=== PATIENT | female | born 1950 | race Caucasian/White ===

== ENCOUNTER 2019-11-10 19:18 | Inpatient (IN) | payer MEDICARE, MEDICAID ==
[~2019-11-10] VITALS: Ht 154.9 cm; Wt 66.2 kg
[2019-11-10] MEDS ORDERED: ACETAMINOPHEN 500MG TABLET PO ONE (20:30)
[2019-11-10 20:36] LABS: BASOPHILS % 1.1 % (0.0-2.0); EOSINOPHILS % 1.5 % (0.0-5.0); HEMOGLOBIN. 12.5 g/dL (12.0-16.0); LYMPHOCYTES % 31.5 % (20.0-50.0); MEAN CORPUSCULAR HEMOGLOBIN 33.3 pg (28.0-32.0); MEAN CORPUSCULAR VOLUME 98.3 fL (81.0-99.0); MEAN PLATELET VOLUME 7.9 fl (7.4-10.4); MONOCYTES % 7.8 % (2.0-8.0); NEUTROPHILS % 58.1 % (40.0-76.0); PLATELET 275 x1000/uL (130-400); RED BLOOD CELL COUNT 3.76 mill/uL (4.2-5.4)
[2019-11-10 20:37] LABS: CHLORIDE 108 mEq/L (98-107)
[2019-11-11] VITALS (12 sets, daily range): BP systolic 98–139; BP diastolic 56–71
[2019-11-11] MEDS ORDERED: MAGNESIUM/ALUMINUM HYDROXIDE/SIMETHICONE 30ML UDC PO PRN (02:15)
[2019-11-11] MEDS ORDERED: GUAIFENESIN 200MG/10ML SUGAR FREE UDC PO PRN (02:15)
[2019-11-11] MEDS ORDERED: DIPHENHYDRAMINE 50MG/ML VIAL IV PRN (02:15)
[2019-11-11] MEDS ORDERED: ONDANSETRON HCL 4MG/2ML INJ IV PRN (02:15)
[2019-11-11] MEDS: ACETAMINOPHEN 325MG TABLET PO PRN ×2 (02:23→13:48)
[2019-11-11] MEDS ORDERED: DEXTROSE 50% WATER 50ML SYRINGE IV PRN (02:30)
[2019-11-11] MEDS ORDERED: KETOROLAC 15MG/ML VIAL IV PRN (02:30)
[2019-11-11] MEDS ORDERED: AMLO5TAB4 PO (05:17)
[2019-11-11] MEDS ORDERED: SOTA80TA25 PO (05:17)
[2019-11-11] MEDS ORDERED: LISI10TA5 PO (05:17)
[2019-11-11] MEDS ORDERED: OCD PO (05:17)
[2019-11-11] MEDS ORDERED: MULT-1146 PO (05:17)
[2019-11-11] MEDS ORDERED: APIX5TAB PO (05:17)
[2019-11-11] MEDS ORDERED: VITA1TAB30 MT (05:17)
[2019-11-11] MEDS ORDERED: GABA800T97 PO (05:17)
[2019-11-11] MEDS ORDERED: BICT1TAB PO (05:17)
[2019-11-11] MEDS ORDERED: ESOM40CA PO (05:17)
[2019-11-11] MEDS ORDERED: METF500T PO (05:17)
[2019-11-11] MEDS ORDERED: HYDR12.54 PO (05:17)
[2019-11-11] MEDS ORDERED: LACO150T2 PO (05:17)
[2019-11-11] MEDS ORDERED: ZONI100C45 MT (05:17)
[2019-11-11] MEDS ORDERED: ATOR10TA69 PO (05:17)
[2019-11-11] MEDS: PANTOPRAZOLE 40MG DR TABLET PO SCH (06:20)
[2019-11-11] MEDS: SODIUM CHLORIDE 0.9% INJ 3ML FLUSH IVF SCH ×3 (06:20→21:59)
[2019-11-11] MEDS: BLOOD SUGAR DIAGNOSTIC STRIP TEST SCH ×4 (06:20→21:58)
[2019-11-11] MEDS: INSULIN LISPRO 100 UNITS/ML SUBCUT SCH ×4 (07:20→21:00)
[2019-11-11] MEDS: METFORMIN HCL 500MG TABLET PO SCH ×2 (07:20→18:06)
[2019-11-11] MEDS: ZONISAMIDE 100MG CAPSULE PO SCH ×2 (09:00→17:00)
[2019-11-11] MEDS ORDERED: SOTALOL HCL 80MG TABLET PO SCH ×2 (09:00→21:00)
[2019-11-11] MEDS ORDERED: LISINOPRIL 10MG TABLET PO SCH (09:00)
[2019-11-11] MEDS: AMLODIPINE 10MG TABLET PO SCH (09:00)
[2019-11-11] MEDS: APIXABAN 5 MG TABLET PO SCH ×2 (09:00→17:00)
[2019-11-11] MEDS: CALCIUM CARBONATE/VITAMIN D3 500MG TABLET PO SCH (09:00)
[2019-11-11 18:49] LABS: T4 FREE 0.94 ng/dL (0.76-1.46)
[2019-11-11] MEDS: GABAPENTIN 400MG CAPSULE PO SCH (21:54)
[2019-11-11] MEDS: ATORVASTATIN CALCIUM 20MG TABLET PO SCH (21:56)
[2019-11-12] VITALS (12 sets, daily range): BP systolic 92–143; BP diastolic 52–70
[2019-11-12] MEDS ORDERED: NON FORMULARY PATIENT HOME MED XX SCH ×3 (00:45→21:00)
[2019-11-12] MEDS ORDERED: SOTALOL HCL 80MG TABLET PO NR (02:21)
[2019-11-12] MEDS: PANTOPRAZOLE 40MG DR TABLET PO SCH (05:40)
[2019-11-12] MEDS: SODIUM CHLORIDE 0.9% INJ 3ML FLUSH IVF SCH ×3 (05:40→22:00)
[2019-11-12] MEDS: BLOOD SUGAR DIAGNOSTIC STRIP TEST SCH ×4 (05:48→21:00)
[2019-11-12] MEDS: INSULIN LISPRO 100 UNITS/ML SUBCUT SCH ×4 (07:20→21:00)
[2019-11-12 07:39] LABS: BASOPHILS % 0.8 % (0.0-2.0); EOSINOPHILS % 3.5 % (0.0-5.0); HEMATOCRIT. 33.7 % (36.0-48.0); HEMOGLOBIN. 11.1 g/dL (12.0-16.0); LYMPHOCYTES % 38.6 % (20.0-50.0); MEAN CORPUSCULAR HEMOGLOBIN 32.7 pg (28.0-32.0); MEAN CORPUSCULAR VOLUME 99.1 fL (81.0-99.0); MEAN PLATELET VOLUME 8.1 fl (7.4-10.4); MONOCYTES % 8.8 % (2.0-8.0); NEUTROPHILS % 48.3 % (40.0-76.0); PLATELET 251 x1000/uL (130-400); RED CELL DISTRIBUTION WIDTH 14.2 % (11.6-14.6)
[2019-11-12] MEDS: APIXABAN 5 MG TABLET PO SCH ×2 (08:42→18:05)
[2019-11-12] MEDS: ZONISAMIDE 100MG CAPSULE PO SCH ×2 (08:42→18:05)
[2019-11-12] MEDS: CALCIUM CARBONATE/VITAMIN D3 500MG TABLET PO SCH (08:42)
[2019-11-12] MEDS: METFORMIN HCL 500MG TABLET PO SCH ×3 (08:42→18:05)
[2019-11-12 08:43] LABS: CHLORIDE 109 mEq/L (98-107)
[2019-11-12] MEDS: ACETAMINOPHEN 325MG TABLET PO PRN ×2 (08:43→20:44)
[2019-11-12] MEDS: SOTALOL HCL 80MG TABLET PO SCH ×3 (08:45→22:17)
[2019-11-12] MEDS: AMLODIPINE 10MG TABLET PO SCH (08:46)
[2019-11-12] MEDS: LACOSAMIDE PO SCH ×2 (10:22→23:38)
[2019-11-12] MEDS: ATORVASTATIN CALCIUM 20MG TABLET PO SCH (22:17)
[2019-11-12] MEDS: GABAPENTIN 400MG CAPSULE PO SCH (22:17)
[2019-11-13] VITALS (10 sets, daily range): BP systolic 107–131; BP diastolic 53–79
[2019-11-13] MEDS: SODIUM CHLORIDE 0.9% INJ 3ML FLUSH IVF SCH ×2 (06:00→14:00)
[2019-11-13] MEDS: BLOOD SUGAR DIAGNOSTIC STRIP TEST SCH ×3 (06:50→16:50)
[2019-11-13] MEDS: PANTOPRAZOLE 40MG DR TABLET PO SCH (06:53)
[2019-11-13 06:59] LABS: EOSINOPHILS % 4.2 % (0.0-5.0); HEMATOCRIT. 32.4 % (36.0-48.0); HEMOGLOBIN. 10.9 g/dL (12.0-16.0); LYMPHOCYTES % 45.1 % (20.0-50.0); MEAN CORPUSCULAR VOLUME 98.5 fL (81.0-99.0); MEAN PLATELET VOLUME 8.3 fl (7.4-10.4); MONOCYTES % 8.2 % (2.0-8.0); NEUTROPHILS % 41.5 % (40.0-76.0); PLATELET 235 x1000/uL (130-400); RED BLOOD CELL COUNT 3.29 mill/uL (4.2-5.4)
[2019-11-13] MEDS: INSULIN LISPRO 100 UNITS/ML SUBCUT SCH ×2 (07:20→11:31)
[2019-11-13 07:22] LABS: CHLORIDE 111 mEq/L (98-107)
[2019-11-13] MEDS: METFORMIN HCL 500MG TABLET PO SCH (09:05)
[2019-11-13] MEDS: LACOSAMIDE PO SCH (09:05)
[2019-11-13] MEDS: CALCIUM CARBONATE/VITAMIN D3 500MG TABLET PO SCH (09:05)
[2019-11-13] MEDS: APIXABAN 5 MG TABLET PO SCH (09:05)
[2019-11-13] MEDS: ZONISAMIDE 100MG CAPSULE PO SCH (09:05)
[2019-11-13] MEDS: SOTALOL HCL 80MG TABLET PO SCH (09:06)
[2019-11-13] MEDS ORDERED: BIKTARVY PO SCH (21:00)
== END 2019-11-13 17:40 | disposition home or self-care (01) | DRG 201 ==
LOC: ER 19:18 → 3WST 23:08 → EDBEDREQTM 23:10 → EDBEDREQSVC 23:10 → EDBEDREQ 23:10 → ENRESERV 11-11 00:29
PROVIDERS: ADMIT Internal Medicine; ATTEND Internal Medicine
DX: I48.91 Unspecified atrial fibrillation (principal); E11.9 Type 2 diabetes mellitus without complications; G40.909 Epilepsy, unspecified, not intractable, without status epilepticus; I25.10 Atherosclerotic heart disease of native coronary artery without angina pectoris; I48.4 Atypical atrial flutter; I10 Essential (primary) hypertension; E78.5 Hyperlipidemia, unspecified; Z86.011 Personal history of benign neoplasm of the brain; Z21 Asymptomatic human immunodeficiency virus [HIV] infection status
CPT/HCPCS: 36415; 71045; 71275; 80048; 80053; 80061; 82962; 83735; 83880; 84439; 84443; 84484; 85025; 85379; 93005; 93306; 93970; 96374; 99291; C1893; J1885; J2405